=== PATIENT | female | born 1980 | race Caucasian/White ===

== ENCOUNTER 2018-06-22 21:13 | Emergency (ER) | payer OTHER ==
[~2018-06-22] VITALS: Ht 165.1 cm; Wt 70.3 kg
[~2018-06-22 21:13] MED LIST: ADVAIR 100-501 EACH; ADVAIR 250-501 EACH INH; ALBUTEROL2.5 MG/3 M PO; ALBUTEROL2.5 MG/31 INH; ALLEGRA-D 12 H1 EACH PO; AMOXICILLIN875 MG PO; AUGMENTIN 875-1 EACH PO; AVELOX 400 MG400 MG PO; AZITHROMYCIN 2250 MG PO; BENADRYL25 MG PO; DUONEB 2.5-0.5 M3 ML INH; LEVAQUIN 500 M500 M2 PO; MEDROL DOSPAK21 TAB PO; MUCINEX TA600 MG/TA1 PO; NORCO 5-325 TA1 EACH PO; OCEAN45 ML NASAL; PREDNISONE 10 M10 M1 PO; PREDNISONE 20 M20 MG PO; PROAIR HFA8.5 GM INH; PROBIOTIC1 EAC1 PO; PROVENTIL HFA6.7 G1 INH; SINGULAIR; SINGULAIR 10 MG10 M1 PO; ZPAK PO
[2018-06-22] MEDS ORDERED: PREDNISONE50 MG PO (23:09)
[2018-06-22 23:31] VITALS: BP 107/62
== END 2018-06-22 23:31 | disposition home or self-care (01) ==
LOC: M.ERS 21:13
DX: J45.901 Unspecified asthma with (acute) exacerbation (principal); Z90.710 Acquired absence of both cervix and uterus; Z88.6 Allergy status to analgesic agent

== ENCOUNTER 2019-01-05 19:25 | Emergency (ER) | payer OTHER ==
[~2019-01-05] VITALS: Ht 165.1 cm; Wt 69.0 kg
[~2019-01-05 19:25] MED LIST changes: +PREDNISONE50 MG PO
[2019-01-05] MEDS ORDERED: SYMBICORT160 MCG/4. INH (19:32)
[2019-01-05] MEDS ORDERED: PREDNISONE50 MG PO (22:41)
[2019-01-05 23:19] VITALS: BP 122/49
== END 2019-01-05 23:22 | disposition home or self-care (01) ==
LOC: M.ERS 19:25
DX: J45.901 Unspecified asthma with (acute) exacerbation (principal); Z88.6 Allergy status to analgesic agent; Z90.710 Acquired absence of both cervix and uterus

== ENCOUNTER 2019-03-14 05:12 | Observation (INO) | payer OTHER ==
[~2019-03-14] VITALS: Ht 165.1 cm; Wt 67.2 kg
[~2019-03-14 05:12] MED LIST changes: +SYMBICORT160 MCG/4. INH
[2019-03-14 05:17] VITALS: BP 118/61
[2019-03-14 05:48] LABS: INFLUENZA A ANTIGEN Negative (Negative); INFLUENZA B ANTIGEN Negative (Negative)
[2019-03-14 08:17] LABS: HEMATOCRIT 41.7 % (37.0-47.0); HEMOGLOBIN 14.6 gm/dL (12.0-15.0); MCH 32.8 pg (26.0-34.0); MCV 93.9 fL (80.0-100.0); MPV 8.4 fl. (7.2-11.1); NUCLEATED RBCS 0 /100WBC; PLATELET COUNT* 357 thou/uL (150-400); RBC 4.44 mil/uL (4.20-5.00); RDW-CV 12.7 % (10.5-14.5); WBC 18.7 thou/uL (4.0-11.0)
[2019-03-14 08:25] LABS: CALCIUM 9.2 mg/dL (8.5-10.1); CREATININE 0.8 mg/dL (0.6-1.3); POTASSIUM 3.8 mmol/L (3.5-5.1)
[2019-03-14 08:46] LABS: PCO2 29.6 mmHg (35.0-45.0); pH 7.459 (7.340-7.450)
[2019-03-14 08:51] LABS: ABSOLUTE EOSINOPHILS 0.4 thou/uL (0.0-0.7); ABSOLUTE LYMPHOCYTES 0.6 thou/uL (0.8-5.3); ABSOLUTE MONOCYTES 0.2 thou/uL (0.0-1.2); ABSOLUTE NEUTROPHILS 17.6 thou/uL (1.6-8.1); PLATELET ESTIMATE ADEQUATE
[2019-03-14 11:12] VITALS: BP 114/63
[2019-03-14 16:37] VITALS: BP 122/66
[2019-03-14 20:00] VITALS: BP 119/75
[2019-03-15] VITALS: BP 124/66
[2019-03-15 04:00] VITALS: BP 106/62
--- NOTE | 2019-03-15 04:05 | NUR ---
PT ALERT ORIENTED. UP AD KATHLEEN. O2 AT 2 LITERS NC. AT START OF SHIFT PT STATED SHE WAS SOA. EXTRA BREATHING TX ORDERED. ATIVAN AND A MAG BOLUS GIVEN. PT MUCH MORE RELAXED AND STATES SHE IS BREATHING BETTER. TELEMETRY SHOWS SR/ST. WCTM
[2019-03-15 06:05] LABS: AMP/METHAMP Negative (Negative); BARBITURATES Negative (Negative); BENZODIAZEPINES Negative (Negative); COCAINE Negative (Negative); METHADONE Negative (Negative); OPIATES Negative (Negative); PCP Negative (Negative); THC Negative (Negative)
[2019-03-15 07:00] VITALS: BP 111/69
--- NOTE | 2019-03-15 09:20 | NUR ---
INITAL ASSESSMENT COMPLETED CHARTED. VSS. PT STATES SHE "IS FEELING MUCH BETTER". TRACING ST ON MONITOR. PT DENIES SOA, N/V/D, PAIN, CP. HOURLY ROUNDING IN PLACE FOR PT SAFETY. CLWR.
--- NOTE | 2019-03-15 10:16 | NUR ---
CM COMPLETED INITIAL ASSESSMENT TO DISCUSS D/C PLANNING. PT A7OX4. PT STATES LIVE AT HOME W/SPOUSE AND CHILD. PT HAS GOOD SUPPORT SYSTEM. NO DMES, NO HX W/SNF OR HH. N0 ANTICIPATED NEEDS AT THIS TIME. CM WILL REMAIN AVAIL TO ASSIST IF NEEDED.
[2019-03-15] MEDS ORDERED: SYMBICORT160 MCG/4. INH (11:12)
[2019-03-15] MEDS ORDERED: LEVAQUIN 500 M500 M3 PO (11:12)
[2019-03-15] MEDS ORDERED: PREDNISONE 10 M10 MG PO (11:12)
[2019-03-15 12:10] VITALS: BP 111/69
== END 2019-03-15 14:20 | disposition home or self-care (01) ==
LOC: M.ERS 05:12 → M.2W 07:59 → M.TBA-ER 07:59 → M.2W 11:21
PROVIDERS: Emergency Medicine; Family Medicine; ADMIT Internal Medicine
DX: J45.901 Unspecified asthma with (acute) exacerbation (principal); J96.91 Respiratory failure, unspecified with hypoxia; I10 Essential (primary) hypertension; R06.02 Shortness of breath; D72.829 Elevated white blood cell count, unspecified

== ENCOUNTER 2020-03-22 20:27 | Inpatient (IN) | payer BC ==
[~2020-03-22] VITALS: Ht 165.1 cm; Wt 73.9 kg
[~2020-03-22 20:27] MED LIST changes: +LEVAQUIN 500 M500 M3 PO; +PREDNISONE 10 M10 MG PO
[2020-03-22 20:36] VITALS: BP 132/81
[2020-03-22 21:12] LABS: INFLUENZA A ANTIGEN Negative (Negative); INFLUENZA B ANTIGEN Negative (Negative)
[2020-03-22 21:13] LABS: HEMOGLOBIN 13.8 gm/dL (12.0-15.0); MCH 32.9 pg (26.0-34.0); MCHC 33.8 g/dL (28.0-37.0); MCV 97.6 fL (80.0-100.0); MPV 8.5 fl. (7.2-11.1); NUCLEATED RBCS 0 /100WBC; PLATELET COUNT* 366 thou/uL (150-400); WBC 14.2 thou/uL (4.0-11.0)
[2020-03-22 21:22] LABS: CALCIUM 8.8 mg/dL (8.5-10.1); CREATININE 0.9 mg/dL (0.6-1.3); POTASSIUM 3.7 mmol/L (3.5-5.1)
[2020-03-22 21:26] LABS: APTT 27.4 Seconds (25.0-31.3); PROTIME 10.3 Seconds (9.20-11.50)
[2020-03-22 21:33] LABS: ALBUMIN 3.4 g/dL (3.4-5.0); TOTAL BILIRUBIN 0.3 mg/dL (<0.1-1.0); TOTAL PROTEIN 6.9 g/dL (6.4-8.2)
[2020-03-22 21:47] LABS: ABSOLUTE EOSINOPHILS 2.1 thou/uL (0.0-0.7); ABSOLUTE LYMPHOCYTES 3.3 thou/uL (0.8-5.3); ABSOLUTE MONOCYTES 1.4 thou/uL (0.0-1.2); ABSOLUTE NEUTROPHILS 7.4 thou/uL (1.6-8.1); PLATELET ESTIMATE ADEQUATE
[2020-03-22 23:00] VITALS: BP 124/66
[2020-03-22 23:06] VITALS: BP 123/65
[2020-03-23 05:06] VITALS: BP 100/60
--- NOTE | 2020-03-23 05:13 | NUR ---
Pt admitted to unit at 2300. Tele in placed tracing sinus rhythm. Pt denies pain. Admission assessment as charted. Pt on 2L NC, sat 90's. RT on board for breathing treatment. Meds given per may. Call light within reach, Will continue POC.
[2020-03-23 09:00] VITALS: BP 127/74
--- NOTE | 2020-03-23 13:14 | EKG ---
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
[2020-03-23 20:00] VITALS: BP 124/78
--- NOTE | 2020-03-23 20:01 | NUR ---
PT. AOX4, VSS, TOLERATING BREATHING AND O2 SATS>91. RECEIVED BREATHING TX. DENIES PAIN. UAL. CALL LIGHT AND PERSONAL BELONGINGS PLACED WITHIN REACH.
[2020-03-24] VITALS: BP 121/71
[2020-03-24 04:00] VITALS: BP 120/67
[2020-03-24 08:42] VITALS: BP 109/58
--- NOTE | 2020-03-24 09:38 | NUR ---
ASSUMED CARE OF PT THIS AM AROUND 0715- DIRECTOR DRUG IN PLACE ORDERED, TRACING SR- UPON ASSESSMENT PT NOTED TO BE RESTING IN BED- PT A&O X4- CONT OF B/B- UP AD-KATHLEEN IN ROOM, STEADY GAIT NOTED- COURSE LUNG SOUNDS NOTED WITH WHEEZING- SOA WITH EXERTION- VSS, O2 TITRATED TO 2L THIS AM; PT O2 SAT 96% ON 2L- ABD SOFT/ROUND/NON-TENDER, BS X4 QUADS- LAST BM REPORTED 03/23/20- IV NOTED TO RIGHT AC INTACT AND SL- GOOD PO INTAKE NOTED THIS AM WITH BREAKFAST- DENIES ANY C/O PAIN/DISCOMFORT AT THIS TIME- CALL LIGHT AND PERSONAL BELONGINGS WITH IN REACH- ALL NEEDS MET AT THIS TIME-WCTM
[2020-03-24] MEDS ORDERED: CEFDINIR300 MG PO (09:56)
[2020-03-24] MEDS ORDERED: PREDNISONE 10 M10 MG PO (09:56)
--- NOTE | 2020-03-24 11:01 | NUR ---
Pt is A&O. Resides at home with her and kids. Active and independent. No DME. No hx of HH or SNF. Pt discharging to home today. Ex ox completed, Pt does not qualify for home o2.
[2020-03-24 11:46] VITALS: BP 115/65
[2020-03-24 11:50] VITALS: BP 115/65
[2020-03-24 12:53] VITALS: BP 115/65
== END 2020-03-24 12:30 | disposition home or self-care (01) | DRG 177 ==
LOC: M.ERS 20:27 → M.TBA-ER 21:58 → M.2W 22:55
PROVIDERS: Emergency Medicine Emergency Medical Services; ADMIT Internal Medicine; ATTEND Internal Medicine
DX: J15.6 Pneumonia due to other Gram-negative bacteria (principal); J96.01 Acute respiratory failure with hypoxia; J45.901 Unspecified asthma with (acute) exacerbation; Z20.828 Contact with and (suspected) exposure to other viral communicable diseases; Z90.710 Acquired absence of both cervix and uterus; Z88.8 Allergy status to other drugs, medicaments and biological substances; Z79.899 Other long term (current) drug therapy; Z87.891 Personal history of nicotine dependence